=== PATIENT | male | born 1975 | race Caucasian/White ===

== ENCOUNTER 2019-01-10 15:17 | Inpatient (IN) ==
[2019-01-10] MEDS ORDERED: ONDANSETRON 4 MG/2 ML VIAL IV STA (16:11)
[2019-01-10] MEDS ORDERED: MORPHINE 4 MG/1 ML VIAL IV STA (16:11)
[2019-01-10] MEDS ORDERED: FAMOTIDINE 20 MG/2 ML VIAL IV STA (16:12)
[2019-01-10 16:28] LABS: Basophils % 0.2 % (0.0-0.8); Eosinophils # 0.1 10*3/uL (0.0-0.87); Eosinophils % 0.9 % (0.00-10.9); Hematocrit 37.5 VOL% (42.0-52.0); Hemoglobin 11.9 GM/DL (14.0-18.0); Immature Granulocytes % 0.5 %; Immature Granulocytes Absolute 0.07 #; Lymphocytes # 1.2 10*3/uL (1.4-4.0); Lymphocytes % 8.1 % (21.2-54.2); Mean Corpuscular HGB Conc 31.7 GM/DL (32-36); Mean Corpuscular Volume 82.1 FL (87-102); Mean Platelet Volume 10.2 FL (9.6-12.0); Monocytes % 4.2 % (1.7-12.7); Neutrophils % 86.1 % (38.7-73.9); Platelet Count 263 T/CUMM (130-400); Red Blood Count 4.57 MC/CUMM (3.8-5.5); White Blood Count 14.9 T/CUMM (4-12)
[2019-01-10 16:32] LABS: Alanine Aminotransferase 13 U/L (16-61); Albumin 2.9 G/DL (3.4-5.0); Alkaline Phosphatase 97 U/L (45-117); Amylase 548 U/L (25-115); Aspartate Amino Transferase 13 U/L (0-37); Bilirubin,Total < 0.39 MG/DL (0.2-1.0); Blood Urea Nitrogen 10 MG/DL (7-18); Calcium 9.4 MG/DL (8.5-10.1); Estimated Glom Filtration Rate 92 ML/MIN; Glucose 148 MG/DL (74-106); Osmolality,Calculated 278.5 MOS/KG (273-304); Total Protein 6.8 G/DL (6.4-8.3)
[2019-01-10] MEDS ORDERED: cefTRIAXone 1,000 MG in SODIUM CHLORIDE 0.9% 100 ML IV STA (16:44)
[2019-01-10] MEDS ORDERED: PROMETHAZINE INJ 12.5 MG in SODIUM CHLORIDE 0.9% 50 ML IV STA (17:01)
[2019-01-10] MEDS ORDERED: HYDROmorphone 2 MG/1 ML VIAL IV STA (17:01)
[2019-01-10 18:02] LABS: Risk Ratio 5.94; VLDL CHOLESTEROL 26.4 MG/DL
[2019-01-10] MEDS ORDERED: ALBUTEROL 2.5 MG/3 ML NEB RESP TX PRN (18:28)
[2019-01-10] MEDS: SODIUM CHLORIDE 0.9% 1,000 ML IV SCH (19:45)
[2019-01-10] MEDS: HYDROmorphone 2 MG/1 ML VIAL IV PRN ×2 (19:45→22:48)
[2019-01-10] MEDS: ONDANSETRON 4 MG/2 ML VIAL IV PRN (19:50)
[2019-01-10] MEDS: AMITRIPTYLINE 100 MG TABLET PO SCH (20:42)
[2019-01-10] MEDS: PANTOPRAZOLE 40 MG VIAL IV SCH (20:43)
[2019-01-10] MEDS: ENOXAPARIN 40 MG/0.4 ML SYRINGE SUBCUT SCH (20:47)
[2019-01-10] MEDS ORDERED: GABAPENTIN 400 MG CAPSULE PO SCH (21:00)
[2019-01-10 23:23] LABS: Apearance,Urine CLEAR (Clear); Bilirubin,Urine Negative (Negative); Blood, Urine Negative (Negative); Glucose,Urine (UA) 50 mg/dL (Negative); Ketones,Urine Negative (Negative); Mucus,Urine Occasional /LPF (Occasional); Nitrite,Urine Negative (Negative); Protein,Urine Negative; RBC,Urine 2 /HPF (0-4); Urine Color Yellow (Yellow); Urine Specific Gravity 1.059 (1.001-1.035); Urine Urobilinogen < 2.0 EU/DL (0.2-1.0); WBC,Urine <1 /HPF (0-6)
[2019-01-10 23:37] LABS: Alcohol Patient Result Negative (Negative)
[2019-01-10 23:46] LABS: Barbiturates Screen,Urine Negative (Negative); Benzodiazepines Screen,Urine Negative (Negative); Cannabinoid Screen,Urine Negative (Negative); Opiate Screen,Urine Positive (Negative); Phencyclidine Screen,Urine Negative (Negative)
[2019-01-11] MEDS: HYDROmorphone 2 MG/1 ML VIAL IV PRN ×4 (03:32→09:20)
[2019-01-11] MEDS: ONDANSETRON 4 MG/2 ML VIAL IV PRN ×3 (03:34→20:49)
[2019-01-11] MEDS: SODIUM CHLORIDE 0.9% 1,000 ML IV SCH ×5 (03:35→23:40)
[2019-01-11 07:16] LABS: Basophils # 0.1 10*3/uL (0.0-0.2); Basophils % 0.3 % (0.0-0.8); Eosinophils # 0.3 10*3/uL (0.0-0.87); Eosinophils % 1.7 % (0.00-10.9); Hematocrit 36.1 VOL% (42.0-52.0); Immature Granulocytes % 0.5 %; Immature Granulocytes Absolute 0.09 #; Lymphocytes # 1.1 10*3/uL (1.4-4.0); Lymphocytes % 6.5 % (21.2-54.2); Mean Corpuscular HGB Conc 30.5 GM/DL (32-36); Mean Corpuscular Volume 83.4 FL (87-102); Mean Platelet Volume 9.7 FL (9.6-12.0); Monocytes % 4.9 % (1.7-12.7); Neutrophils % 86.1 % (38.7-73.9); Platelet Count 211 T/CUMM (130-400); Red Blood Count 4.33 MC/CUMM (3.8-5.5); White Blood Count 17.2 T/CUMM (4-12)
[2019-01-11 07:37] LABS: Albumin 2.5 G/DL (3.4-5.0); Bilirubin,Total 0.4 MG/DL (0.2-1.0); Calcium 8.4 MG/DL (8.5-10.1); Osmolality,Calculated 272.7 MOS/KG (273-304); Total Protein 6.1 G/DL (6.4-8.3)
[2019-01-11] MEDS: PANTOPRAZOLE 40 MG VIAL IV SCH ×2 (09:20→20:52)
[2019-01-11] MEDS: NICOTINE 21 MG/24 HR PATCH TRANSDERM SCH (09:20)
[2019-01-11] MEDS: CITALOPRAM 40 MG TABLET PO SCH (09:20)
[2019-01-11] MEDS: oxyCODONE/ACETAMINOPHEN 5-325 MG TABLET PO PRN ×3 (10:57→23:39)
[2019-01-11] MEDS: MORPHINE 10 MG/1 ML VIAL IV PRN ×3 (12:46→20:46)
[2019-01-11] MEDS: AMITRIPTYLINE 100 MG TABLET PO SCH (20:51)
[2019-01-11] MEDS: ENOXAPARIN 40 MG/0.4 ML SYRINGE SUBCUT SCH (20:51)
[2019-01-12] MEDS: MORPHINE 10 MG/1 ML VIAL IV PRN ×5 (00:49→20:52)
[2019-01-12] MEDS: ONDANSETRON 4 MG/2 ML VIAL IV PRN ×3 (00:54→20:54)
[2019-01-12] MEDS: SODIUM CHLORIDE 0.9% 1,000 ML IV SCH ×4 (05:03→20:57)
[2019-01-12] MEDS: oxyCODONE/ACETAMINOPHEN 5-325 MG TABLET PO PRN ×3 (05:52→20:09)
[2019-01-12 05:55] LABS: Basophils # 0.1 10*3/uL (0.0-0.2); Basophils % 0.3 % (0.0-0.8); Eosinophils # 0.4 10*3/uL (0.0-0.87); Eosinophils % 2.1 % (0.00-10.9); Hematocrit 33.5 VOL% (42.0-52.0); Hemoglobin 10.2 GM/DL (14.0-18.0); Immature Granulocytes % 0.7 %; Immature Granulocytes Absolute 0.12 #; Lymphocytes # 1.7 10*3/uL (1.4-4.0); Lymphocytes % 9.3 % (21.2-54.2); Mean Corpuscular HGB Conc 30.4 GM/DL (32-36); Mean Corpuscular Volume 82.9 FL (87-102); Mean Platelet Volume 11.1 FL (9.6-12.0); Monocytes % 6.1 % (1.7-12.7); Neutrophils % 81.5 % (38.7-73.9); Platelet Count 187 T/CUMM (130-400); Red Blood Count 4.04 MC/CUMM (3.8-5.5); Red Cell Distribution Width 17.2 % (9.3-17.3); White Blood Count 18.4 T/CUMM (4-12)
[2019-01-12 06:33] LABS: Albumin 2.2 G/DL (3.4-5.0); Bilirubin,Total 0.5 MG/DL (0.2-1.0); Calcium 8.4 MG/DL (8.5-10.1); Osmolality,Calculated 275.4 MOS/KG (273-304); Total Protein 5.9 G/DL (6.4-8.3)
[2019-01-12] MEDS: PANTOPRAZOLE 40 MG VIAL IV SCH ×2 (09:07→20:13)
[2019-01-12] MEDS: CITALOPRAM 40 MG TABLET PO SCH (09:07)
[2019-01-12] MEDS: NICOTINE 21 MG/24 HR PATCH TRANSDERM SCH (09:07)
[2019-01-12] MEDS: AMITRIPTYLINE 100 MG TABLET PO SCH (20:10)
[2019-01-12] MEDS: ENOXAPARIN 40 MG/0.4 ML SYRINGE SUBCUT SCH (20:10)
[2019-01-13] MEDS: MORPHINE 10 MG/1 ML VIAL IV PRN ×6 (00:49→23:43)
[2019-01-13] MEDS: ONDANSETRON 4 MG/2 ML VIAL IV PRN ×4 (00:52→16:21)
[2019-01-13] MEDS: SODIUM CHLORIDE 0.9% 1,000 ML IV SCH ×5 (02:01→20:52)
[2019-01-13] MEDS: oxyCODONE/ACETAMINOPHEN 5-325 MG TABLET PO PRN ×4 (02:02→20:48)
[2019-01-13 05:36] LABS: Basophils % 0.1 % (0.0-0.8); Eosinophils # 0.2 10*3/uL (0.0-0.87); Eosinophils % 1.6 % (0.00-10.9); Hematocrit 29.6 VOL% (42.0-52.0); Hemoglobin 9.2 GM/DL (14.0-18.0); Immature Granulocytes % 0.9 %; Immature Granulocytes Absolute 0.13 #; Lymphocytes # 1.7 10*3/uL (1.4-4.0); Lymphocytes % 11.3 % (21.2-54.2); Mean Corpuscular HGB Conc 31.1 GM/DL (32-36); Mean Corpuscular Volume 81.8 FL (87-102); Mean Platelet Volume 10.7 FL (9.6-12.0); Monocytes % 6.2 % (1.7-12.7); Neutrophils % 79.9 % (38.7-73.9); Platelet Count 178 T/CUMM (130-400); Red Blood Count 3.62 MC/CUMM (3.8-5.5); Red Cell Distribution Width 17.1 % (9.3-17.3); White Blood Count 14.8 T/CUMM (4-12)
[2019-01-13 05:55] LABS: Alanine Aminotransferase 9 U/L (16-61); Alkaline Phosphatase 96 U/L (45-117); Aspartate Amino Transferase 11 U/L (0-37); Bilirubin,Total < 0.39 MG/DL (0.2-1.0); Blood Urea Nitrogen 8 MG/DL (7-18); Calcium 8.1 MG/DL (8.5-10.1); Estimated Glom Filtration Rate 137 ML/MIN; Glucose 75 MG/DL (74-106); Osmolality,Calculated 271.7 MOS/KG (273-304); Total Protein 5.5 G/DL (6.4-8.3)
[2019-01-13] MEDS: PANTOPRAZOLE 40 MG VIAL IV SCH ×2 (08:36→20:48)
[2019-01-13] MEDS: CITALOPRAM 40 MG TABLET PO SCH (08:36)
[2019-01-13] MEDS: NICOTINE 21 MG/24 HR PATCH TRANSDERM SCH (08:36)
[2019-01-13] MEDS: AMITRIPTYLINE 100 MG TABLET PO SCH (20:48)
[2019-01-13] MEDS: ENOXAPARIN 40 MG/0.4 ML SYRINGE SUBCUT SCH (20:48)
[2019-01-14] MEDS: SODIUM CHLORIDE 0.9% 1,000 ML IV SCH ×8 (01:28→21:46)
[2019-01-14] MEDS: oxyCODONE/ACETAMINOPHEN 5-325 MG TABLET PO PRN ×4 (02:47→21:44)
[2019-01-14] MEDS: MORPHINE 10 MG/1 ML VIAL IV PRN ×4 (05:27→23:21)
[2019-01-14] MEDS: NICOTINE 21 MG/24 HR PATCH TRANSDERM SCH (09:31)
[2019-01-14] MEDS: CITALOPRAM 40 MG TABLET PO SCH (09:31)
[2019-01-14] MEDS: PANTOPRAZOLE 40 MG VIAL IV SCH ×2 (09:31→20:36)
[2019-01-14] MEDS: ENOXAPARIN 40 MG/0.4 ML SYRINGE SUBCUT SCH (20:37)
[2019-01-14] MEDS: AMITRIPTYLINE 100 MG TABLET PO SCH (20:37)
[2019-01-15] MEDS: SODIUM CHLORIDE 0.9% 1,000 ML IV SCH ×3 (01:43→12:09)
[2019-01-15] MEDS: MORPHINE 10 MG/1 ML VIAL IV PRN ×2 (03:28→08:14)
[2019-01-15] MEDS: oxyCODONE/ACETAMINOPHEN 5-325 MG TABLET PO PRN ×2 (05:15→12:07)
[2019-01-15] MEDS: NICOTINE 21 MG/24 HR PATCH TRANSDERM SCH (07:59)
[2019-01-15] MEDS: CITALOPRAM 40 MG TABLET PO SCH ×2 (07:59→09:03)
[2019-01-15] MEDS: PANTOPRAZOLE 40 MG VIAL IV SCH (07:59)
[2019-01-15 11:32] VITALS: BP 138/85
== END 2019-01-15 12:26 | disposition home or self-care (01) | DRG 440 ==
LOC: N.ED 15:17 → N.EDINP 17:32 → SUATTDRO 17:32 → N.5E 18:27
PROVIDERS: ADMIT Internal Medicine; ATTEND Emergency Medicine